=== PATIENT | female | born 1960 | race African-American/Black ===

== ENCOUNTER 2023-10-19 09:39 | Day surgery (SDC) | payer OTHER ==
[2023-10-17 12:17] VITALS: BMI 21.7
[2023-10-19] MEDS ORDERED: Famotidine/PF 20 mg/2ml Vial ONE (10:35)
[2023-10-19] MEDS ORDERED: Ipratropium/Albuterol 3 ML NEB ONE (10:36)
[2023-10-19] MEDS ORDERED: PROPOFOL 40 ML ONE (11:03)
[2023-10-19] MEDS ORDERED: PROPOFOL 20 ML ONE ×2 (11:34→11:39)
[2023-10-19] MEDS ORDERED: PHENYLEPHRINE-NS 100 MCG/ML 10 ML SYRINGE ONE (11:42)
== END 2023-10-19 12:20 | disposition home or self-care (01) ==
LOC: CSHSDC 09:39
PROVIDERS: ATTEND Internal Medicine Gastroenterology
PROC: 0DBQ8ZZ Excision of Anus, Via Natural or Artificial Opening Endoscopic (ICD-10-PCS; principal; 2023-10-19)
DX: Z12.11 Encounter for screening for malignant neoplasm of colon (principal); D12.7 Benign neoplasm of rectosigmoid junction; K57.30 Diverticulosis of large intestine without perforation or abscess without bleeding; K64.9 Unspecified hemorrhoids; I10 Essential (primary) hypertension; G62.9 Polyneuropathy, unspecified; M19.90 Unspecified osteoarthritis, unspecified site; I69.359 Hemiplegia and hemiparesis following cerebral infarction affecting unspecified side; Z87.891 Personal history of nicotine dependence; Z79.899 Other long term (current) drug therapy
CPT/HCPCS: 88305; 94640; J2704; J7620; S0028

== ENCOUNTER 2025-04-30 09:42 | Day surgery (SDC) | payer OTHER, MEDICAID ==
[2025-04-29 10:20] VITALS: BMI 25.8
[2025-04-30 11:09] LABS: ALT (SGPT) 23 U/L (Less than 34); AST (SGOT) 27 U/L (11-34); Albumin 3.2 g/dL (3.1-4.5); Alkaline Phosphatase 111 U/L (40-110); Bilirubin, Direct 0.1 mg/dL (0.1-0.3); Bilirubin, Total 0.3 mg/dL (0.3-1.2)
[2025-04-30] MEDS ORDERED: CEFAZOLIN 2 GM VIAL ONE (12:14)
[2025-04-30] MEDS ORDERED: Bupivacaine/Epinephrine 0.25% 30 ML VIAL ONE (12:14)
[2025-04-30] MEDS ORDERED: Lidocaine 1% PF 5 ML VIAL ONE (12:54)
[2025-04-30] MEDS ORDERED: PROPOFOL 20 ML ONE ×2 (12:54→13:28)
[2025-04-30] MEDS ORDERED: Rocuronium Bromide 10 MG/ML (10ML VIAL) ONE (12:54)
[2025-04-30] MEDS ORDERED: Ondansetron PF 4 MG/2 ML Vial ONE (13:24)
[2025-04-30] MEDS ORDERED: PHENYLEPHRINE-NS 100 MCG/ML 10 ML SYRINGE ONE (13:25)
[2025-04-30] MEDS ORDERED: SUGAMMADEX SODIUM 200 MG/2 ML VIAL ONE (13:25)
[2025-04-30] MEDS ORDERED: Lidocaine 4% PF 5 ML AMP ONE (13:29)
[2025-04-30] MEDS ORDERED: HYDROcodone/Acetaminophen 5/325 mg Tablet ONE (14:33)
== END 2025-04-30 15:20 | disposition home or self-care (01) ==
LOC: CSHSDC 09:42
PROVIDERS: ATTEND Surgery
PROC: 0FT44ZZ Resection of Gallbladder, Percutaneous Endoscopic Approach (ICD-10-PCS; principal; 2025-04-30)
DX: K80.10 Calculus of gallbladder with chronic cholecystitis without obstruction (principal); I10 Essential (primary) hypertension; E78.5 Hyperlipidemia, unspecified; Z86.73 Personal history of transient ischemic attack (TIA), and cerebral infarction without residual deficits; Z79.82 Long term (current) use of aspirin; Z79.899 Other long term (current) drug therapy
CPT/HCPCS: 47562; 80076; C1889; J1100; J2405; J2704; J3010; S2900; 36415; 88304